=== PATIENT | male | born 1960 | race Caucasian/White ===

== ENCOUNTER 2020-09-03 14:54 | Emergency (ER) | payer BC, OTHER ==
[2020-09-03] MEDS ORDERED: BUFFERED LIDOCAINE 10 ML SYRINGE SUBQ STA (15:20)
[2020-09-03] MEDS ORDERED: TETANUS/DIPHTHERIA/PERTUSSIS 0.5 ML SYRINGE IM ONE (15:25)
--- NOTE | 2020-09-03 15:25 | ED Physician Documentation ---
PD HPI UPPER EXT INJURY - Stated complaint Stated Complaint: RIGHT FINGER LAC - Chief complaint Chief Complaint: Laceration - History obtained from History obtained from: Patient (60-year-old gentleman with unknown tetanus status, he is ambidextrous. He cut his right index finger with a utility knife while working at home just prior to arrival.) Review of Systems Constitutional: reports: Reviewed and negative Eyes: reports: Reviewed and negative Ears: reports: Reviewed and negative PD PAST MEDICAL HISTORY - Past Medical History Past Medical History: Yes : Other - Past Surgical History Past Surgical History: No - Allergies Allergies/Adverse Reactions: Allergies Allergy/AdvReac Type Severity Reaction Status Date / Time No Known Drug Allergies Allergy Verified 09/03/20 14:57 - Social History Does the pt smoke?: No Smoking Status: Never smoker Does the pt drink ETOH?: No Does the pt have substance abuse?: No - Immunizations Immunizations are current?: No Immunizations: TDAP >10years/unknown - POLST Patient has POLST: No PD ED PE NORMAL - Vitals Vital signs reviewed: Yes - General General: Alert and oriented X 3, No acute distress - HEENT HEENT: PERRL, EOMI - Extremities Extremities: Other (There is a flap laceration on the radial side of the right index finger at the level of the distal phalanx. Measures about 2 cm. No distal neurovascular compromise.) - Neuro Neuro: Alert and oriented X 3, Normal speech Results - Vitals Vitals: Vital Signs - 24 hr 09/03/20 14:57 Temperature 36.5 C Heart Rate 69 Respiratory 16 Rate Blood Pressure 160/100 H O2 Saturation 95 Oxygen O2 Source Room air Procedures - Laceration (location) R 2nd finger Length in cm: 2 Wound type: Curved, Into subcut fat Neurovascular status: Sensory intact, Motor intact, Vascular intact Anesthesia: Lidocaine 1%, With bicarb Wound preparation: Irrigated copiously NS Skin layer closure: Nylon, Interrupted, Size #-0 - enter number (5-0) Other: Patient tolerated well, No complications, Neurovascular intact, Tetanus booster given Departure - Departure Disposition: 01 Home, Self Care Clinical Impression: Laceration Condition: Good Record reviewed to determine appropriate education?: Yes Instructions: ED Laceration Hand Comments: Come back for any signs of infection which would include: Redness, swelling, drainage, increased pain, or fevers. You can wash it soap and water. Keep it covered and moist with bacitracin ointment which is available over the counter; avoid neosporin. Follow-up with your physician in about 14 days for suture removal.
[2020-09-03 16:09] VITALS: BP 146/90
== END 2020-09-03 16:17 | disposition home or self-care (01) ==
LOC: ED 14:54
DX: S61.210A Laceration without foreign body of right index finger without damage to nail, initial encounter (principal); W26.0XXA Contact with knife, initial encounter; Y93.H3 Activity, building and construction; Y92.009 Unspecified place in unspecified non-institutional (private) residence as the place of occurrence of the external cause; Z23 Encounter for immunization
CPT/HCPCS: 12001; 90471; 99282; 99283

== ENCOUNTER 2022-08-17 16:07 | Emergency (ER) | payer BC, OTHER ==
[2022-08-17 16:15] VITALS: BP 147/83
--- NOTE | 2022-08-17 16:37 | ED Physician Documentation ---
PD HPI OPHTHO - Stated complaint Stated Complaint: FB LT EYE - Chief complaint Chief Complaint: Heent - History obtained from History obtained from: Patient - History of Present Illness Pain level max: 1 Pain level now: 1 Location: Left Associated symptoms: Redness, Tearing, FB sensation Contributing factors: No: Wears contacts - Additional information Additional information: 62-year-old male states that he was drilling on the underside of a metal trailer today when he felt something in his left eye. He is concerned that there could be metal in the left eye. There is tearing and redness. Does not use contacts. Does wear glasses. Tetanus up-to-date Review of Systems Neurologic: denies: Headache PD PAST MEDICAL HISTORY - Past Medical History Past Medical History: Yes : Other - Past Surgical History Past Surgical History: No - Present Medications Home Medications: Ambulatory Orders Medication Instructions Recorded Confirmed Ofloxacin 0.3% Ophth Drops 1 drops LEFTEYE Q4H 7 Days #5 ml 08/17/22 [Ocuflox 0.3% Ophth Drops] - Allergies Allergies/Adverse Reactions: Allergies Allergy/AdvReac Type Severity Reaction Status Date / Time No Known Drug Allergies Allergy Verified 09/03/20 14:57 - Social History Does the pt smoke?: No Smoking Status: Never smoker Does the pt drink ETOH?: No Does the pt have substance abuse?: No - Immunizations Immunizations are current?: No Immunizations: TDAP >10years/unknown - POLST Patient has POLST: No PD ED PE NORMAL - Vitals Vital signs reviewed: Yes - General General: Alert and oriented X 3, No acute distress - HEENT HEENT: Other (L eye. small metal fragment in medial cornea. small rust ring) - Derm Derm: Warm and dry - Neuro Neuro: Alert and oriented X 3 Results - Vitals Vitals: Vital Signs - 24 hr 08/17/22 16:11 Temperature 36.9 C Heart Rate 83 Respiratory 16 Rate Blood Pressure 147/83 H O2 Saturation 97 Oxygen O2 Source Room air PD Medical Decision Making - ED course Complexity details: considered differential, d/w patient ED course: Patient with a small piece of metal in the medial cornea of the left eye. Proparacaine was used to anesthetize the eye and then an 18-gauge needle was used to remove the piece of metal. Small rust ring present. We will place on ophthalmic antibiotics and have him follow-up with ophthalmology for removal of the rust ring. Eyelids were everted, no further foreign bodies. Eye was irrigated. Patient counseled regarding signs and symptoms for which I believe and urgent re-evaluation would be necessary. Patient with good understanding of and agreement to plan and is comfortable going home at this time This document was made in part using voice recognition software. While efforts are made to proofread this document, sound alike and grammatical errors may occur. Departure - Departure Disposition: 01 Home, Self Care Clinical Impression: Corneal foreign body Qualifiers: Encounter type: initial encounter Laterality: left Qualified Code(s): T15.02XA - Foreign body in cornea, left eye, initial encounter Condition: Good Instructions: ED Foreign Body Cornea W Rust Ring Follow-Up: Adriel Manzanares MD [Provider Admit Priv/Credential] - Within 3 Days Prescriptions: Ofloxacin 0.3% Ophth Drops [Ocuflox 0.3% Ophth Drops] 1 drops LEFTEYE Q4H 7 Days #5 ml Comments: Please follow-up with ophthalmology for further care and removal of the rust ring. Use the antibiotic drops as prescribed. Return if you worsen. Please call in the morning for an appointment. Your prescriptions were sent to [facility]
== END 2022-08-17 16:44 | disposition home or self-care (01) ==
LOC: ED 16:07
DX: T15.02XA Foreign body in cornea, left eye, initial encounter (principal); X58.XXXA Exposure to other specified factors, initial encounter
CPT/HCPCS: 65220; 99282